=== PATIENT | female | born 1970 | race Caucasian/White ===

== ENCOUNTER 2019-01-01 18:35 | Emergency (ER) | payer OTHER, MEDICAID, SELFPAY ==
[2019-01-01 18:42] VITALS: BP 164/97; PULSE 111; RESP 15; TEMP 37.1; O2SAT 98; BMI 23.7
--- NOTE | 2019-01-01 18:52 | DI.RAD.S_ITS ---
PROCEDURE: XR ANKLE LT MIN 3V INDICATIONS: ankle swelling TECHNIQUE: 3 views of the ankle were acquired. COMPARISON: None. FINDINGS: Bones: No fractures or dislocations. Ankle mortise is normally aligned. No suspicious bony lesions. Soft tissues: There is lateral malleolar soft tissue swelling. No tibiotalar joint effusion. Achilles tendon appears normal. IMPRESSION: Lateral malleolar soft tissue swelling. No underlying bony abnormality. If pain persists, repeat study in 5-7 days is recommended to exclude occult fracture. Dictated by: Lisset Li M.D. on 01/01/2019 at 19:13 Approved by: Lisset Li M.D. on 01/01/2019 at 19:13
--- NOTE | 2019-01-01 19:13 | ED_ITS ---
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 She states that she has been walking on it a lot, but no contusion, twisting or any known injury. She has not had any pain. She states she has a history of some swelling in her feet and ankles intermittently, none recently. She states that she used to be on medication for blood pressure and could have been for this as well, but not sure (she stopped all meds about 18 months ago, cannot name them and does not know PCP name). She denies any pain in the calf or knee. She denies any history of blood clots. She denies any chest pain, dyspnea, or other new complaints on systems review such as fever or any wounds Related Data Allergies Allergy/AdvReac Type Severity Reaction Status Date / Time No Known Drug Allergies Allergy Verified 01/01/19 18:49 Review of Systems <Margaret Hoffmann PA-C - Last Filed: 01/01/19 21:07> Review of Systems ROS Unobtainable: All systems reviewed & are unremarkable except as noted in HPI and below Patient History <Margaret Hoffmann PA-C - Last Filed: 01/01/19 21:07> Medical History (Updated 01/01/19 @ 20:09 by Margaret Hoffmann PA-C) Edema of lower extremity (Chronic) H/O: HTN (hypertension) (Chronic) Surgical History (Updated 01/01/19 @ 19:31 by Margaret Hoffmann PA-C) History of knee surgery (Resolved) Social History Smoking Status: Current every day smoker Social History Smoking Status: Current every day smoker alcohol intake frequency: holidays/special occasions only Substance Use Type: does not use Exam <VIET Wheat Last Filed: 01/01/19 21:07> Narrative Exam Narrative: GENERAL APPEARANCE: Patient sitting comfortably, in no distress. NECK/THYROID: Neck supple LUNGS: Clear to auscultation bilaterally. HEART: Regular rate and rhythm without murmur, normal S1, S2, no S3 or S4. EXTREMITIES: No cyanosis, pedal pulses present. No calf tenderness NEUROLOGIC: Alert and oriented, normal speech and coordination. MUSCULOSKELETAL: Moderate localized left ankle effusion, mildly tender to touch throughout the ankle joint. No tenderness over the metatarsals or toes, no tenderness over the knee. Full range of motion of the foot and ankle nonweightbearing without tenderness, normal knee flexion Initial Vital Signs Initial Vital Signs: Vital Signs Temperature 98.8 F 01/01/19 18:42 Pulse Rate 111 H 01/01/19 18:42 Respiratory Rate 15 01/01/19 18:42 Blood Pressure 164/97 H 01/01/19 18:42 Pulse Oximetry 98 01/01/19 18:42 <DO Bella Navarro Last Filed: 01/01/19 23:27> Initial Vital Signs Initial Vital Signs: Vital Signs Temperature 98.8 F 01/01/19 18:42 Pulse Rate 111 H 01/01/19 18:42 Respiratory Rate 15 01/01/19 18:42 Blood Pressure 164/97 H 01/01/19 18:42 Pulse Oximetry 98 01/01/19 18:42 Course <VIET Wheat Last Filed: 01/01/19 21:07> Orders Ordered: ED Orders 01/01/19 18:52 XR ankle LT min 3V Stat Vital Signs Vital signs: Vital Signs - 8 hr 01/01/19 18:42 01/01/19 20:20 Temperature 98.8 F Pulse Rate 111 H 74 Respiratory Rate 15 15 Blood Pressure 164/97 H 128/89 Pulse Oximetry 98 98 <DO Bella Navarro Last Filed: 01/01/19 23:27> Orders Ordered: ED Orders 01/01/19 18:52 XR ankle LT min 3V Stat Vital Signs Vital signs: Vital Signs - 8 hr 01/01/19 18:42 01/01/19 20:20 Temperature 98.8 F Pulse Rate 111 H 74 Respiratory Rate 15 15 Blood Pressure 164/97 H 128/89 Pulse Oximetry 98 98 MDM - Extremity Injury (Lower) <Margaret Hoffmann PA-C - Last Filed: 01/01/19 21:07> Imaging Data ankle: Radiologist's impression: [address] [address] XRay Report Signed Patient: Shahana Espino FMR#: [id number] : 1970Acct:[id number] Age/Sex: 48 / FDate of Service: 01/01/19 Loc: ED Accession Number: [id number] Procedure: XR ankle LT min 3V Ordering Provider: Margaret Hoffmann P.A-C PROCEDURE: XR ANKLE LT MIN 3V INDICATIONS: ankle swelling TECHNIQUE: 3 views of the ankle were acquired. COMPARISON: None. FINDINGS: Bones: No fractures or dislocations. Ankle mortise is normally aligned. No suspicious bony lesions. Soft tissues: There is lateral malleolar soft tissue swelling. No tibiotalar joint effusion. Achilles tendon appears normal. IMPRESSION: Lateral malleolar soft tissue swelling. No underlying bony abnormality. If pain persists, repeat study in 5-7 days is recommended to exclude occult fracture. Dictated by: Lisset Li M.D. on 01/01/2019 at 19:13 Approved by: Lisset Li M.D. on 01/01/2019 at 19:13 Discharge Plan Departure Patient Disposition: Home Clinical Impression: Edema of left ankle Discharge Date/Time: 01/01/19 20:21 Instructions: DI for Edema Due to Venous Stasis Activity Restrictions/Additional Instructions: Today, the source of your ankle swelling is not clear. You do have some swelling on the x-ray over the outside part of your ankle bone area, but no clear injury or fracture. Since you are not having pain, this could also be similar swelling to what you have had in the past, i.e. related to varicose veins. Please elevate your legs above your heart as much as possible. Wear the Conor wrap or a compression sock for support and comfort. As we talked about, you should return if you have any acute changes or new symptoms such as fever, severe pain or difficulty breathing. Since you are may be starting to notice a little bit of swelling in your other ankle, it is possible that you might need to start a diuretic medicine again if you are on that before. As we discussed however, you should follow-up with your PCP and have x-ray repeated next week if you still have swelling limited to that ankle without pain. We have given you a copy of your film on disc for comparison purposes if needed. Referrals: [facility], Nina Forman [Other]
[2019-01-01 20:20] VITALS: BP 128/89; PULSE 74; RESP 15; O2SAT 98
== END 2019-01-01 20:21 | disposition home or self-care (01) ==
PROVIDERS: Emergency Provider Internal Medicine
DX: R60.0 Localized edema (principal)
CPT/HCPCS: 73610; 99282; 99283

== ENCOUNTER 2021-02-08 14:46 | Emergency (ER) | payer OTHER, MEDICAID, SELFPAY ==
[2021-02-08 15:06] VITALS: BP 162/90; PULSE 99; RESP 18; TEMP 37.5; O2SAT 100; BMI 24.4
--- NOTE | 2021-02-08 17:20 | DI.CT.S_ITS ---
PROCEDURE: CT SOFT TISSUE NECK W CON INDICATIONS: Left-sided facial and neck swelling TECHNIQUE: After the administration of intravenous contrast, 3.0 mm axial sections acquired from the sella to the aortic arch. Additional oblique axial 3.0 mm sections acquired through the pharynx. 3 mm thick coronal and sagittal reformats were generated. For radiation dose reduction, the following was used: automated exposure control. COMPARISON: None. FINDINGS: Image quality: Excellent. Lymph nodes: No enlarged lymph nodes seen throughout the neck. Vessels: Visualized vasculature appears patent. Neck spaces: The oropharynx, nasopharynx, and pharynx demonstrate no mucosal lesions. The vocal cords, false vocal cords, pyriform sinuses, epiglottis, vallecula, and tongue base all appear normal. Extramucosal spaces appear unremarkable. Glands: The parotid and submandibular glands appear normal. Thyroid gland unremarkable. Miscellaneous: Visualized brain and orbits appear normal. Lung apices show mild emphysematous changes subpleural blebs. Superficial soft tissues appear normal. Skull base shows air-fluid level right sphenoid sinus with osseous wall thickening reflecting chronic sinusitis. Bones: No suspicious bony lesions. Visualized sinuses and mastoids appear unremarkable. Multilevel degenerative disc disease and arthropathy lower cervical spine results in moderate central and foraminal stenosis at C6-7 IMPRESSION: 1. No acute CT findings in the neck. No subcutaneous or glandular edema. No abscess. 2. Multilevel degenerative disc disease and arthropathy results in moderate central stenosis at C6-7 Approved by: Balwinder Parsons M.D. on 02/08/2021 at 17:03
--- NOTE | 2021-02-08 17:25 | ED.GENADULT ---
HPI - General Adult <Chandrakant Pavon PA-C - Last Filed: 02/08/21 19:54> General Chief complaint: Dental/Oral Stated complaint: lt sided facial swelling Time Seen by Provider: 02/08/21 16:55 Source: patient Mode of arrival: Ambulatory Limitations: no limitations History of Present Illness HPI narrative: Patient is a 50-year-old female presenting to the emergency department today for an evaluation difficulty swallowing that began yesterday. Patient states that she began to experience facial lesions approximately 4 months ago that she sought treatment for at the walk-in clinic in [place]. She states that she completed a 14 day course of doxycycline approximately 1 week ago, but she notes that she began experiencing symptoms of fever and chills shortly after completing the antibiotic. Patient notes that she has also experienced a burning sensation in the left side of her neck with associated ?bad taste in the mouth?, blurry vision in the left eye, headache, and decreased hearing in the left ear. No abdominal pain, nausea, vomiting, diarrhea great thanks, chest pain, shortness of breath, dysuria, hematuria, or ear pain noted. No other concerns voiced at this time Related Data Previous Rx's Medication Instructions Recorded doxycycline monohydrate 100 mg 100 mg PO BID #28 cap 01/05/21 capsule Allergies Allergy/AdvReac Type Severity Reaction Status Date / Time No Known Drug Allergies Allergy Verified 01/05/21 11:35 Review of Systems <Chandrakant Pavon PA-C - Last Filed: 02/08/21 19:54> Constitutional Constitutional: Reports chills, Denies fatigue, Denies fever(s) (Reports feeling warm), Denies frequent falls, Reports headache(s), Denies lethargy and Denies weakness Eyes Eyes: Reports blurry vision (Left eye) ENT Ears, Nose, Mouth, and Throat: Reports abnormal hearing (Decreased hearing left ear), Denies change in voice, Denies dental pain, Reports dysphagia, Denies dizziness, Reports headache(s), Denies nasal congestion, Denies nasal discharge, Denies neck pain, Denies sore throat and Denies throat swelling Cardiovascular Cardiovascular: Denies chest pain, Denies irregular heart rhythm, Denies lightheadedness, Denies palpitations, Denies dyspnea, Denies dyspnea on exertion and Denies orthopnea Respiratory Respiratory: Denies cough, Denies dyspnea, Denies dyspnea on exertion and Denies wheezing Gastrointestinal Gastrointestinal: Denies abdominal pain, Denies change in bowel habits, Reports dysphagia, Denies diarrhea, Denies nausea and Denies vomiting Genitourinary Genitourinary: Denies hematuria, Denies flank pain, Denies urinary incontinence and Denies urinary urgency Musculoskeletal Musculoskeletal: Denies back pain, Denies muscle weakness, Denies neck pain, Denies numbness and Denies tingling Integumentary/Breasts Skin/Breast: Reports lesions (Facial) Neurologic Neurologic: Reports abnormal hearing (Decreased hearing left ear), Denies dizziness, Denies frequent falls, Reports headache(s), Denies numbness, Denies tingling and Denies weakness Endocrine Endocrine: Denies fatigue and Denies palpitations Allergic/Immunologic Allergic/Immunologic: Denies urticaria, Denies throat swelling and Denies wheezing Patient History <Chandrakant Pavon PA-C - Last Filed: 02/08/21 19:54> Medical History Edema of lower extremity H/O: HTN (hypertension) Surgical History History of knee surgery Social History Smoking Status: Current every day smoker Smoking Status: Current every day smoker alcohol intake frequency: holidays/special occasions only Substance Use Type: does not use Exam <Chandrakant Pavon PA-C - Last Filed: 02/08/21 19:54> Narrative Exam Narrative: GENERAL: 50 year old patient appears stated age. Well-developed patient, in no acute distress. HEAD: Atraumatic. Normocephalic. EYES: Pupils equal round and reactive. Extraocular motions intact. No scleral icterus. No injection or drainage. ENT: Nose without bleeding, purulent drainage. Throat without erythema, tonsillar hypertrophy or exudate. Airway patent. Uvula midline. Tympanic membranes clear bilaterally in free of erythema or bulging. NECK: Trachea midline. Non tender CARDIOVASCULAR: Regular rate and rhythm without murmurs, gallops, or rubs. RESPIRATORY: Clear to auscultation. Breath sounds equal bilaterally. No wheezes, rales, or rhonchi. GASTROINTESTINAL: Abdomen soft, non-tender, nondistended. EXTREMITIES: No edema or joint tenderness. BACK: Nontender without deformity or crepitance. No flank tenderness. NEURO: AOx3. SKIN: No rash or erythema of visible areas. Numerous scattered lesions throughout the face in various stages of healing. Initial Vital Signs Initial Vital Signs: Vital Signs Temperature 99.5 F 02/08/21 15:06 Pulse Rate 99 H 02/08/21 15:06 Respiratory Rate 18 02/08/21 15:06 Blood Pressure 162/90 H 02/08/21 15:06 Pulse Oximetry 100 02/08/21 15:06 <David Painter DO - Last Filed: 02/10/21 07:19> Initial Vital Signs Initial Vital Signs: Vital Signs Temperature 99.5 F 02/08/21 15:06 Pulse Rate 99 H 02/08/21 15:06 Respiratory Rate 18 02/08/21 15:06 Blood Pressure 162/90 H 02/08/21 15:06 Pulse Oximetry 100 02/08/21 15:06 Course <VIET Haque Last Filed: 02/08/21 19:54> Course Course Narrative: CT soft tissue neck with contrast, CBC, CMP ordered. Orders Ordered: ED Orders 02/08/21 17:20 CT soft tissue neck w con Stat 02/08/21 17:35 CBC Auto Diff [Complete Blood Count AUTO DIFF] Stat CMP [Comprehensive Metabolic Panel] Stat Vital Signs Vital signs: Vital Signs - 8 hr 02/08/21 15:06 02/08/21 18:54 Temperature 99.5 F Pulse Rate 99 H 66 Respiratory Rate 18 18 Blood Pressure 162/90 H 143/86 H Pulse Oximetry 100 100 <DO Bella Kessler Last Filed: 02/10/21 07:19> Orders Ordered: ED Orders 02/08/21 17:20 CT soft tissue neck w con Stat 02/08/21 17:35 CBC Auto Diff [Complete Blood Count AUTO DIFF] Stat CMP [Comprehensive Metabolic Panel] Stat Vital Signs Vital signs: Vital Signs - 8 hr 02/08/21 15:06 02/08/21 18:54 Temperature 99.5 F Pulse Rate 99 H 66 Respiratory Rate 18 18 Blood Pressure 162/90 H 143/86 H Pulse Oximetry 100 100 Medical Decision Making <VIET Haque Last Filed: 02/08/21 19:54> Lab Data Result diagrams: 02/08/21 17:35 02/08/21 17:35 Labs: Lab Results 02/08/21 02/08/21 Range/Units 17:35 17:35 WBC 6.8 (4.5-11.0) X10^3/uL RBC 4.70 (4.0-5.2) X10^6/uL Hgb 14.3 (12.0-16.0) g/dL Hct 42.3 (36-46) % MCV 89.9 (80-100) fL MCH 30.3 (26-34) PG MCHC 33.7 (30-36) % RDW 12.9 (11.6-14.8) % Plt Count 283 (150-400) X10^3/uL Neut % (Auto) 63.7 (50-75) % Lymph % (Auto) 29.0 (25-40) % Blount % (Auto) 5.5 (3-14) % Eos % (Auto) 1.1 L (2-4) % Baso % (Auto) 0.7 (0-2) % Neut # (Auto) 4300 (3838-1982) /uL Lymph # (Auto) 2000 (3268-6250) /uL Blount # (Auto) 400 (0-900) /uL Eos # (Auto) 100 (0-450) /uL Baso # (Auto) 0 (0-100) /uL Sodium 142 (137-145) mmol/L Potassium 4.2 (3.4-5.1) mmol/L Chloride 104 (98-107) mmol/L Carbon Dioxide 30 (22-32) mmol/L BUN 9 (7-17) mg/dL Creatinine 1.03 (0.52-1.04) mg/dL Estimated GFR 56.7 L (>60) mL/min BUN/Creatinine Ratio 8.7 (6-22) Glucose 108 H (70-100) mg/dL Calcium 9.6 (8.4-10.2) mg/dL Total Bilirubin 0.5 (0.2-1.3) mg/dL AST 37 H (14-36) IU/L ALT 33 (<35) IU/L Alkaline Phosphatase 72 (38-126) U/L Total Protein 7.9 (6.3-8.2) g/dL Albumin 4.8 (3.5-5.0) g/dL Globulin 3.1 (1.7-4.1) g/dL Albumin/Globulin Ratio 1.5 (1.0-2.8) Imaging Data CT - Soft Tissue Neck: Radiologist's Impression: PROCEDURE:? CT SOFT TISSUE NECK W CON ? INDICATIONS:? Left-sided facial and neck swelling ? TECHNIQUE:? After the administration of intravenous contrast, 3.0 mm axial sections acquired from the sella to the aortic arch.? Additional oblique axial 3.0 mm sections acquired through the pharynx.? 3 mm thick coronal and sagittal reformats were generated.? For radiation dose reduction, the following was used:? automated exposure control.? ? COMPARISON:? None. ? FINDINGS:? Image quality:? Excellent.? ? Lymph nodes:? No enlarged lymph nodes seen throughout the neck.? ? Vessels:? Visualized vasculature appears patent.? ? Neck spaces:? The oropharynx, nasopharynx, and pharynx demonstrate no mucosal lesions.? The vocal cords, false vocal cords, pyriform sinuses, epiglottis, vallecula, and tongue base all appear normal.? Extramucosal spaces appear unremarkable.? ? Glands:? The parotid and submandibular glands appear normal.? Thyroid gland unremarkable. ? ? Miscellaneous:? Visualized brain and orbits appear normal.? Lung apices show mild emphysematous changes subpleural blebs.? Superficial soft tissues appear normal.? Skull base shows air-fluid level right sphenoid sinus with osseous wall thickening reflecting chronic sinusitis. ? Bones:? No suspicious bony lesions.? Visualized sinuses and mastoids appear unremarkable. ?Multilevel degenerative disc disease and arthropathy lower cervical spine results in moderate central and foraminal stenosis at C6-7 ? ? IMPRESSION:? ? 1. No acute CT findings in the neck.? No subcutaneous or glandular edema.? No abscess.? ? 2. Multilevel degenerative disc disease and arthropathy results in moderate central stenosis at C6-7 ? ? Approved by: Balwinder Parsons M.D. on 02/08/2021 at 17:03? [facility] Narrative Medical decision making narrative: Patient is a 50-year-old female presenting to the emergency department today for an evaluation difficulty swallowing that began yesterday. To consider bacterial sinusitis versus rhinosinusitis versus viral pharyngitis. Overall history and physical examination are reassuring. CT soft tissue neck with contrast showed no acute findings no abscess. Lab work and imaging with patient and noted that results overall have been reassuring. At this time patient feels comfortable being discharged home. Strict return precautions discussed with patient prior to discharge. <David Painter DO - Last Filed: 02/10/21 07:19> Lab Data Labs: Lab Results 02/08/21 02/08/21 Range/Units 17:35 17:35 WBC 6.8 (4.5-11.0) X10^3/uL RBC 4.70 (4.0-5.2) X10^6/uL Hgb 14.3 (12.0-16.0) g/dL Hct 42.3 (36-46) % MCV 89.9 (80-100) fL MCH 30.3 (26-34) PG MCHC 33.7 (30-36) % RDW 12.9 (11.6-14.8) % Plt Count 283 (150-400) X10^3/uL Neut % (Auto) 63.7 (50-75) % Lymph % (Auto) 29.0 (25-40) % Blount % (Auto) 5.5 (3-14) % Eos % (Auto) 1.1 L (2-4) % Baso % (Auto) 0.7 (0-2) % Neut # (Auto) 4300 (8199-4518) /uL Lymph # (Auto) 2000 (1515-0660) /uL Blount # (Auto) 400 (0-900) /uL Eos # (Auto) 100 (0-450) /uL Baso # (Auto) 0 (0-100) /uL Sodium 142 (137-145) mmol/L Potassium 4.2 (3.4-5.1) mmol/L Chloride 104 (98-107) mmol/L Carbon Dioxide 30 (22-32) mmol/L BUN 9 (7-17) mg/dL Creatinine 1.03 (0.52-1.04) mg/dL Estimated GFR 56.7 L (>60) mL/min BUN/Creatinine Ratio 8.7 (6-22) Glucose 108 H (70-100) mg/dL Calcium 9.6 (8.4-10.2) mg/dL Total Bilirubin 0.5 (0.2-1.3) mg/dL AST 37 H (14-36) IU/L ALT 33 (<35) IU/L Alkaline Phosphatase 72 (38-126) U/L Total Protein 7.9 (6.3-8.2) g/dL Albumin 4.8 (3.5-5.0) g/dL Globulin 3.1 (1.7-4.1) g/dL Albumin/Globulin Ratio 1.5 (1.0-2.8) Discharge Plan Departure Patient Disposition: Home Clinical Impression: Acute rhinosinusitis Instructions: Sinusitis Activity Restrictions/Additional Instructions: *You have been diagnosed with [ ] *What to do: *Please continue to take your regular medications as directed. [ ] New medication prescriptions sent to your pharmacy: [ ] [ ] New medication written as a paper prescription [X] No new medications given *Please follow up with your primary care provider in the next 24-48 hours, call for an appointment. Let them know you were seen in the Emergency Department and that we ask that you be seen in follow up. We will electronically transmit a record of today's note if your PCP is in our system *If you do not have a primary care provider please contact the [facility] Resource line at [phone]. They will ask some questions about your medical history and help get you set up with a doctor in the community. *Return to Emergency Department if you should have any new, worsening or concerning symptoms, such as fever greater than 101 F, shaking chills, worsening pain, worsening swelling, worsening difficulty swallowing, persistent vomiting or other bothersome symptoms. Prescriptions: No Action doxycycline monohydrate 100 mg capsule 100 mg PO BID Qty: 28 0RF Rx Instructions: Take one capsule twice daily for 10-14 days <David Painter, DO - Last Filed: 02/10/21 07:19> Cosign ED Attending Cosignature Attestation: Dr Painter Co-Sign Statement: I was available for consultation during this patient's emergency department visit. This chart is signed by myself for administrative purposes only. I did not have direct contact with this patient during this visit. They were seen independently by the APC.
[2021-02-08 17:47] LABS: Add Manual Diff / Slide Review NO; Basophils Absolute Auto 0 /uL (0-100); Basophils Percent Auto 0.7 % (0-2); Eosinophils Absolute Auto 100 /uL (0-450); Eosinophils Percent Auto 1.1 % (2-4); Hematocrit 42.3 % (36-46); Hemoglobin 14.3 g/dL (12.0-16.0); Lymphocytes Absolute Auto 2000 /uL (1100-4500); Mean Corpuscular HGB Conc 33.7 % (30-36); Mean Corpuscular Hemoglobin 30.3 PG (26-34); Mean Corpuscular Volume 89.9 fL (80-100); Monocytes Absolute Auto 400 /uL (0-900); Monocytes Percent Auto 5.5 % (3-14); Neutrophils Absolute Auto 4300 /uL (1500-7000); Neutrophils Percent Auto 63.7 % (50-75); Platelet Count 283 X10^3/uL (150-400); Red Cell Distribution Width 12.9 % (11.6-14.8); White Blood Cell Count 6.8 X10^3/uL (4.5-11.0)
[2021-02-08 18:18] LABS: Alanine Aminotransferase 33 IU/L (<35); Albumin 4.8 g/dL (3.5-5.0); Albumin Globulin Ratio 1.5 (1.0-2.8); Alkaline Phosphatase 72 U/L (38-126); Aspartate Aminotransferase 37 IU/L (14-36); BUN Creatinine Ratio 8.7 (6-22); Bilirubin Total 0.5 mg/dL (0.2-1.3); Blood Urea Nitrogen 9 mg/dL (7-17); Calcium 9.6 mg/dL (8.4-10.2); Carbon Dioxide 30 mmol/L (22-32); Chloride 104 mmol/L (98-107); Estimated Glomerular Filt Rate 56.7 mL/min (>60); Globulin 3.1 g/dL (1.7-4.1); Glucose 108 mg/dL (70-100); HEMOLYSIS < 15 (0-50); Potassium 4.2 mmol/L (3.4-5.1); Sodium 142 mmol/L (137-145); Total Protein 7.9 g/dL (6.3-8.2)
[2021-02-08 18:54] VITALS: BP 143/86; PULSE 66; RESP 18; O2SAT 100
== END 2021-02-08 18:54 | disposition home or self-care (01) ==
PROVIDERS: Emergency Provider Physician Assistant
DX: J01.90 Acute sinusitis, unspecified (principal); R13.10 Dysphagia, unspecified
CPT/HCPCS: 36415; 70491; 80053; 85025; 99284; Q9967

== ENCOUNTER 2022-01-03 20:00 | Emergency (ER) | payer OTHER, MEDICAID, SELFPAY ==
[2022-01-03 20:10] VITALS: BP 187/94; PULSE 96; RESP 16; TEMP 36.9; O2SAT 100; BMI 25.1
--- NOTE | 2022-01-03 22:46 | PC.NURSE ---
assessment: Patient states she has a history of skin infections and everytime she has a sinus infection, it has to be diagnosed by a CT scan because she doesnt know she has it except for a headache in the back of her head. these have been going on for 2-3 years. patient then goes on to say she got this weird thing on her hand and her hand got all swollen and red and her hand had a fever, her uncle thought she might have a spider bite and she needed to go to the doctor. she shows me a small [id number] abrasion on hand, appears to be in the healing process. pt states this has been there for 5 days and it is super painful sometimes, like when she is driving, and shoots up her arm to her elbow with sharp nerve pain and makes her arm go all tingling. patient then states it hit her face and she has had these weird lesions on her face and her lips have been swollen and there is something in her left nostril. but these lesions are hollow and there is nothing underneath them except new skin. patient describes them like a tunnel. she states she has had something like this years ago and had bactrim for it and it healed up but the other meds made it come back. patient states she got meds from [facility] 4 months ago. pt does have lesions on face and cracks at corner of mouth.
--- NOTE | 2022-01-03 23:19 | ED.GENADULT ---
HPI - General Adult General Chief complaint: Upper Respiratory Symptoms Stated complaint: states sinus infection Time Seen by Provider: 01/03/22 23:09 Source: patient Mode of arrival: Ambulatory History of Present Illness HPI narrative: Patient complains of persistent lesions to her face, both sides. Seen here in January 2021 for the same. Was placed on doxycycline. Since then she is seen Dermatology for times as well as primary care. She states the only time the lesions resolved was with Bactrim DS. 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 Denies any other complaints. She states she does not pick at her skin. There are no other lesions other on her face. Has had oozing off and on. Currently dry skin. No fever chills. Related Data Previous Rx's Medication Instructions Recorded doxycycline monohydrate 100 mg 100 mg PO BID #28 caps 01/05/21 capsule sulfamethoxazole 800 1 tab PO BID #20 tabs 01/03/22 mg-trimethoprim 160 mg tablet Allergies Allergy/AdvReac Type Severity Reaction Status Date / Time No Known Drug Allergies Allergy Verified 01/05/21 11:35 Review of Systems Review of Systems Narrative: GENERAL: Denies chills, fatigue, malaise, fever, sweats. HEENT: Denies sinus pain, ear pain, sore throat RESPIRATORY: Denies dyspnea, cough CARDIOVASCULAR: Denies chest pain, palpitations GASTROINTESTINAL: Denies nausea, vomiting, abdominal pain : Denies dysuria, frequency, hematuria MUSCULOSKELETAL: denies muscle or bony pain SKIN: Denies rash, positive for skin lesions NEUROLOGIC: Denies weakness, numbness ROS Unobtainable: All systems reviewed & are unremarkable except as noted in HPI and below Patient History Medical History Edema of lower extremity H/O: HTN (hypertension) Surgical History History of knee surgery Social History Smoking Status: Current every day smoker Smoking Status: Current every day smoker tobacco type: cigarettes alcohol intake frequency: holidays/special occasions only Substance Use Type: does not use Exam Narrative Exam Narrative: GENERAL: in no distress, not toxic not dyspneic HEAD: Normocephalic. EYES: Pupils equal round No scleral icterus. ENT: Mucous membranes moist. NECK: Trachea midline. CARDIOVASCULAR: Regular rate and rhythm without murmurs RESPIRATORY: Clear to auscultation. Breath sounds equal bilaterally. No wheezes, rales, or rhonchi. GASTROINTESTINAL: Abdomen soft, non-tender EXTREMITIES: No gross deformities. Small left hand skin ulceration the patient states she picked out and since then has pain off and on that radiates proximally. NEURO: AOx4. SKIN: Warm and dry, there are spotty diffuse bilateral face circular lesions ranging from 2 mm up to 5 mm in diameter. They are dry. Slightly ulcerated. Nontender to touch. No oozing. No red streaking. No palpable abscesses. No vesicles. PSYCH: Not anxious, is cooperative Initial Vital Signs Initial Vital Signs: Vital Signs Temperature 98.4 F 01/03/22 20:10 Pulse Rate 96 H 01/03/22 20:10 Respiratory Rate 16 01/03/22 20:10 Blood Pressure 187/94 H 01/03/22 20:10 Pulse Oximetry 100 01/03/22 20:10 Oxygen Delivery Method 01/03/22 20:10 Course Course Course Narrative: No new issues during course of stay Orders Ordered: Discontinued Medications Trimethoprim/Sulfamethoxazole (Trimeth/Sulfa 160/800 (Ds) Tablet) 1 tab PO NOW ONE Stop: 01/03/22 23:19 Last Admin: 01/03/22 23:46 Dose: 1 tab Documented By: NR Reevaluation(s) Reevaluation #1: Patient agrees with treatment plan with trying Bactrim again as it did resolve her facial skin lesions in the past. No blood work or imaging indicated at this time. Treating clinically for cellulitis/staph infection Time: 23:26 Vital Signs Vital signs: Vital Signs - 8 hr 01/03/22 20:10 01/03/22 23:52 Temperature 98.4 F Pulse Rate 96 H 84 Respiratory Rate 16 24 Blood Pressure 187/94 H 147/79 H Pulse Oximetry 100 97 Oxygen Delivery Method Room Air Room Air Medical Decision Making Differential Diagnosis Differential Diagnosis: Cellulitis/MRSA/impetigo/shingles MDM Narrative Medical decision making narrative: Appropriate for discharge home treatment with Bactrim. This has resolved her facial lesions in the past. She is willing to try this again. She does have established dermatology as well as primary care. Return precautions reviewed with her. Not toxic at discharge. No imaging or blood work indicated. Discharge Plan Departure Patient Disposition: Home Clinical Impression: Cellulitis diffuse, face Instructions: DI for Cellulitis -- Adult Activity Restrictions/Additional Instructions: Please continue Bactrim antibiotic tomorrow. Prescription for 10 days has been provided and sent to your [facility] pharmacy. 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 Return if worse if any questions or concerns Prescriptions: New sulfamethoxazole-trimethoprim 800-160 mg tablet 1 tab PO BID Qty: 20 0RF No Action doxycycline monohydrate 100 mg capsule 100 mg PO BID Qty: 28 0RF Rx Instructions: Take one capsule twice daily for 10-14 days Visit Report Forms: Patient Portal/API
[2022-01-03] MEDS: TRIMETH/SULFA 160/800 (DS) TABLET 1 TAB PO (23:46)
[2022-01-03 23:52] VITALS: BP 147/79; PULSE 84; RESP 24; O2SAT 97
== END 2022-01-03 23:56 | disposition home or self-care (01) ==
PROVIDERS: Emergency Provider Emergency Medicine
DX: L03.211 Cellulitis of face (principal)
CPT/HCPCS: 99283

== ENCOUNTER 2024-01-03 11:58 | Emergency (ER) | payer OTHER, MEDICAID, SELFPAY ==
[2024-01-03] VITALS (11 sets, daily range): BP systolic 125–155; BP diastolic 68–87; PULSE 71–90; RESP 17; TEMP 36.3; O2SAT 95–99; BMI 29.2
[2024-01-03 12:47] LABS: Add Manual Diff / Slide Review NO; Basophils Absolute Auto 0 /uL (0-100); Basophils Percent Auto 0.4 % (0-2); Eosinophils Absolute Auto 100 /uL (0-450); Eosinophils Percent Auto 0.9 % (2-4); Hemoglobin 13.5 g/dL (12.0-16.0); Lymphocytes Absolute Auto 2100 /uL (1100-4500); Lymphocytes Percent Auto 18.1 % (25-40); Mean Corpuscular HGB Conc 33.7 % (30-36); Mean Corpuscular Hemoglobin 30.1 PG (26-34); Mean Corpuscular Volume 89.4 fL (80-100); Monocytes Absolute Auto 1000 /uL (0-900); Monocytes Percent Auto 8.6 % (3-14); Neutrophils Absolute Auto 8200 /uL (1500-7000); Platelet Count 465 X10^3/uL (150-400); Red Blood Cell Count 4.48 X10^6/uL (4.0-5.2); Red Cell Distribution Width 13.4 % (11.6-14.8); White Blood Cell Count 11.5 X10^3/uL (4.5-11.0)
[2024-01-03 13:07] LABS: Alanine Aminotransferase 105 IU/L (<35); Albumin 4.3 g/dL (3.5-5.0); Alkaline Phosphatase 199 U/L (38-126); Aspartate Aminotransferase 61 IU/L (14-36); BUN Creatinine Ratio 13.9 (6-22); Bilirubin Total 0.6 mg/dL (0.2-1.3); Blood Urea Nitrogen 15 mg/dL (7-17); Calcium 9.2 mg/dL (8.4-10.2); Carbon Dioxide 29 mmol/L (22-32); Chloride 100 mmol/L (98-107); Estimated Glomerular Filt Rate > 60 mL/min (>60); Globulin 4.1 g/dL (1.7-4.1); Glucose 110 mg/dL (70-100); HEMOLYSIS 40 (0-50); Lipase 76 U/L (23-300); Potassium 4.3 mmol/L (3.4-5.1); Sodium 138 mmol/L (137-145); Total Protein 8.4 g/dL (6.3-8.2)
[2024-01-03 13:08] LABS: Bacteria Urine Moderate (10-30); Culture Indicated Urine Specimen Cultured; RBC Urine 0-1/HPF (0-5/HPF); Squamous Epithelial Cell Urine 1-5 /HPF (0-5/HPF); Urine Volume 10mL (spun); WBC Urine 10-30/HPF (0-5/HPF)
--- NOTE | 2024-01-03 16:36 | EKG_ITS ---
[address] [address] Test Date: 2024-01-03 Pat Name: Shahana Espino Department: [facility] Room: Gender: Female Program Paraprofessional: VANESSA : 1970 Requested By: Order Number: [id number] Reading MD: Damián Guzman Measurements Intervals Abbott Rate: 75 P: 51 IA: 174 QRS: 51 QRSD: 86 T: 58 QT: 392 QTc: 437 Interpretive Statements Sinus rhythm with premature atrial complexes Electronically Signed On 01-06-2024 15:54:16 PDT by Damián Guzman
--- NOTE | 2024-01-03 17:11 | DI.US.S_ITS ---
PROCEDURE: US ABDOMEN LIMITED INDICATIONS: ruq TECHNIQUE: Real-time scanning was performed of the abdominal and retroperitoneal organs, with image documentation. COMPARISON: None. FINDINGS: Liver: Liver is enlarged and measures 19.8 cm in length. Diffusely increased liver parenchymal echotexture is seen. No definite discrete hepatic lesion is noted. Normal hepatopetal flow is seen in patent main portal vein. Gallbladder: No gallstones. No gallbladder wall thickening or pericholecystic fluid. No sonographic Cabrera sign. Biliary ducts: Intrahepatic bile ducts are non-dilated. Extrahepatic bile duct caliber measures 6 mm. Normal is 6-7 mm or less in diameter, or 10 mm or less post-cholecystectomy. Pancreas: Visualized portions of the pancreas are sonographically normal. Miscellaneous: No free abdominal fluid. IMPRESSION: 1. Hepatic steatosis and hepatomegaly. No discrete hepatic lesion. 2. Normal appearing gallbladder. No biliary ductal dilatation. 3. Normal appearing right kidney and visualized portion of pancreas. Dictated by: Wilfredo Gan M.D. on 01/03/2024 at 18:08 Approved by: Wilfredo Gan M.D. on 01/03/2024 at 18:09
--- NOTE | 2024-01-03 17:22 | ED_ITS ---
HPI - Abdominal Pain General Chief Complaint: Abdominal Pain Stated Complaint: abd pain, getting worse Time Seen by Provider: 01/03/24 17:11 Source: patient Mode of arrival: Family Vehicle History of Present Illness HPI narrative: Patient is a 53-year-old female without significant past medical history presenting today with ongoing abdominal pain. She reports that gotten worse over the last week or so. She also feels like she is having some suprapubic pain she feels like something is wrong with her uterus although she does not have any menstrual periods anymore. She also has ongoing back pain she has no tingling down the leg. No nausea or vomiting. Denies any significant chest pain no fever or chills. Related Data Previous Rx's Medication Instructions Recorded doxycycline monohydrate 100 mg 100 mg PO BID #28 caps 01/05/21 capsule sulfamethoxazole 800 1 tab PO BID #20 tabs 01/03/22 mg-trimethoprim 160 mg tablet cephalexin 500 mg capsule 500 mg PO BID 7 days #14 caps 01/03/24 Allergies Allergy/AdvReac Type Severity Reaction Status Date / Time No Known Drug Allergies Allergy Verified 01/03/24 12:20 Patient History Medical History Edema of lower extremity H/O: HTN (hypertension) Surgical History History of knee surgery Social History Smoking Status: Current every day smoker Smoking Status: Current every day smoker tobacco type: cigarettes alcohol intake frequency: other Substance Use Type: does not use Exam Initial Vital Signs Initial Vital Signs: Vital Signs Temperature 97.4 F L 01/03/24 12:17 Pulse Rate 90 01/03/24 12:17 Respiratory Rate 17 01/03/24 12:17 Blood Pressure 155/87 H 01/03/24 12:17 Pulse Oximetry 98 01/03/24 12:17 Oxygen Delivery Method Room Air 01/03/24 12:17 GENERAL: Alert 53-year-old female and in no acute distress. HEENT: Head atraumatic,EOMI, pupils reactive, face symmetric, moist mucous membranes CARDIOVASCULAR: Regular rate and rhythm without murmurs, rubs or gallops. RESPIRATORY: Breath sounds equal bilaterally, no wheezes rales or rhonchi. ABDOMEN: Soft, negative Cabrera sign minimal epigastric pain some mild right lower quadrant pain without guarding or rebound no peritoneal sign minimal suprapubic pain : No significant CVA tenderness some mild lower lumbar pain EXTREMITIES: Normal range of motion, no clubbing or edema. Neurovascularly intact NEUROLOGICAL: Alert and oriented x4.Normal gait and speech. SKIN: Warm, dry, no laceration, no petechiae, no rashes or lesions. Course Orders Ordered: Discontinued Medications Cefazolin Sodium (Cephalexin 250 Mg Cap Prepack) 1 bottle MISC DIRECTED ONE Stop: 01/03/24 19:33 Last Admin: 01/03/24 20:08 Dose: 250 mg Documented By: LEISA Ketorolac Tromethamine (Ketorolac 30 Mg/Ml Vial) 15 mg IV NOW ONE Stop: 01/03/24 18:22 Last Admin: 01/03/24 18:51 Dose: 15 mg Documented By: SABRA Ondansetron HCl (Ondansetron 4 Mg/2 Ml Inj) 4 mg IV NOW PRN PRN Reason: Nausea And Vomiting Ondansetron HCl (Ondansetron 4 Mg Odt) 4 mg PO NOW PRN PRN Reason: Nausea And Vomiting Vital Signs Vital signs: Vital Signs - 8 hr 01/03/24 12:17 01/03/24 16:38 01/03/24 16:38 Temperature 97.4 F L Pulse Rate 90 76 Respiratory Rate 17 Blood Pressure 155/87 H 126/82 Pulse Oximetry 98 95 Oxygen Delivery Method Room Air Room Air 01/03/24 17:00 01/03/24 17:00 01/03/24 17:30 Temperature Pulse Rate 72 74 Respiratory Rate Blood Pressure 126/80 Pulse Oximetry 97 97 Oxygen Delivery Method Room Air 01/03/24 17:30 01/03/24 18:00 01/03/24 18:00 Temperature Pulse Rate 77 Respiratory Rate Blood Pressure 127/72 134/68 Pulse Oximetry 99 Oxygen Delivery Method 01/03/24 18:30 01/03/24 18:30 01/03/24 19:08 Temperature Pulse Rate 72 75 Respiratory Rate Blood Pressure 125/85 Pulse Oximetry 98 Oxygen Delivery Method 01/03/24 19:09 01/03/24 19:09 01/03/24 19:13 Temperature Pulse Rate 71 72 Respiratory Rate Blood Pressure 140/84 Pulse Oximetry 98 97 Oxygen Delivery Method 01/03/24 19:13 Temperature Pulse Rate Respiratory Rate Blood Pressure 128/72 Pulse Oximetry Oxygen Delivery Method MDM - Abdominal Pain Lab Data 01/03/24 12:36 01/03/24 12:36 Labs: Lab Results 01/03/24 01/03/24 Range/Units 12:36 12:40 WBC 11.5 H (4.5-11.0) X10^3/uL RBC 4.48 (4.0-5.2) X10^6/uL Hgb 13.5 (12.0-16.0) g/dL Hct 40.0 (36-46) % MCV 89.4 (80-100) fL MCH 30.1 (26-34) PG MCHC 33.7 (30-36) % RDW 13.4 (11.6-14.8) % Plt Count 465 H (150-400) X10^3/uL Neut % (Auto) 72.0 (50-75) % Lymph % (Auto) 18.1 L (25-40) % [place] % (Auto) 8.6 (3-14) % Eos % (Auto) 0.9 L (2-4) % Baso % (Auto) 0.4 (0-2) % Neut # (Auto) 8200 H (5546-2817) /uL Lymph # (Auto) 2100 (3229-6463) /uL [place] # (Auto) 1000 H (0-900) /uL Eos # (Auto) 100 (0-450) /uL Baso # (Auto) 0 (0-100) /uL Sodium 138 (137-145) mmol/L Potassium 4.3 (3.4-5.1) mmol/L Chloride 100 (98-107) mmol/L Carbon Dioxide 29 (22-32) mmol/L BUN 15 (7-17) mg/dL Creatinine 1.08 H (0.52-1.04) mg/dL Estimated GFR > 60 (>60) mL/min BUN/Creatinine Ratio 13.9 (6-22) Glucose 110 H (70-100) mg/dL Calcium 9.2 (8.4-10.2) mg/dL Total Bilirubin 0.6 (0.2-1.3) mg/dL AST 61 H (14-36) IU/L ALT 105 H (<35) IU/L Alkaline Phosphatase 199 H (38-126) U/L Total Protein 8.4 H (6.3-8.2) g/dL Albumin 4.3 (3.5-5.0) g/dL Globulin 4.1 (1.7-4.1) g/dL Albumin/Globulin Ratio 1.0 (1.0-2.8) Lipase 76 (23-300) U/L Urine RBC 0-1/hpf (0-5/HPF) Urine WBC 10-30/hpf H (0-5/HPF) Ur Squamous Epith Cells 1-5 /hpf (0-5/HPF) Urine Bacteria Moderate (10-30) H (None) Ur Culture Indicated? Specimen cultured Vol Urine Centrifuged 10ml (spun) Point of care testing: Urine Dip Bedside Urine Glucose Negative Bedside Urine Bilirubin - Negative Bedside Urine Ketone - Negative Urine Specific [place] 1.025 Bedside Urine Occult Blood + Bedside Urine pH 6.0 Bedside Urine Protein + 30 Bedside Urine Urobilinogen - Negative Bedside Urine Nitrite - Negative Bedside Urine Leukocytes + 70 Esterase Imaging Data US - abdomen: Radiologist's Impression: PROCEDURE: US ABDOMEN LIMITED INDICATIONS: ruq TECHNIQUE: Real-time scanning was performed of the abdominal and retroperitoneal organs, with image documentation. COMPARISON: None. FINDINGS: Liver: Liver is enlarged and measures 19.8 cm in length. Diffusely increased liver parenchymal echotexture is seen. No definite discrete hepatic lesion is noted. Normal hepatopetal flow is seen in patent main portal vein. Gallbladder: No gallstones. No gallbladder wall thickening or pericholecystic fluid. No sonographic Cabrera sign. Biliary ducts: Intrahepatic bile ducts are non-dilated. Extrahepatic bile duct caliber measures 6 mm. Normal is 6-7 mm or less in diameter, or 10 mm or less post-cholecystectomy. Pancreas: Visualized portions of the pancreas are sonographically normal. Miscellaneous: No free abdominal fluid. IMPRESSION: 1. Hepatic steatosis and hepatomegaly. No discrete hepatic lesion. 2. Normal appearing gallbladder. No biliary ductal dilatation. 3. Normal appearing right kidney and visualized portion of pancreas. Dictated by: Wilfredo Gan M.D. on 01/03/2024 at 18:08 CT scan - abdomen/pelvis: Radiologist's Impression: PROCEDURE: CT ABDOMEN PELVIS W CON INDICATIONS: RLQ pain TECHNIQUE: After the administration of intravenous contrast, axial sections acquired from the lung bases to the pubic symphysis. Coronal and sagittal reformats were performed. For radiation dose reduction, the following was used: automated exposure control, adjustment of mA and/or kV according to patient size. COMPARISON: None. FINDINGS: Image quality: Diagnostic. Lower Chest: No significant findings. ABDOMEN: Liver: No solid mass. Gallbladder: No radiopaque gallstones or wall thickening. Biliary ducts: No biliary dilation. Pancreas: No ductal dilation. Spleen: Size is within normal limits. Adrenal Glands: No adrenal nodules. Kidneys and Ureters: There is left perinephric fat stranding and very mild prominence of left renal collecting system. Very mild prominence of left ureter is also seen without calcified renal stone or ureteral stone. No right-sided hydronephrosis. No solid mass. No complex renal cystic lesion which requires follow up. Stomach and Bowel: There is no bowel obstruction. Normal appendix is seen in right lower quadrant. No abscess collection. Peritoneum: No abnormal intraperitoneal fluid. No free air. Ventral Wall: No significant ventral hernia. Abdominal Nodes: No retroperitoneal or mesenteric adenopathy by size criteria. Vessels: Aorta and inferior vena cava are normal in size. PELVIS: Pelvic Organs: Within normal limits. Bladder: Mild diffuse bladder wall thickening is seen, no discrete bladder wall mass . Possible tiny stone is seen in dependent portion of bladder lumen best seen on series 2, image 137. Pelvic Nodes: No enlarged lymph nodes. Miscellaneous: No inguinal hernias are seen. Bones: No aggressive osseous abnormality. IMPRESSION: 1. Normal appendix. No bowel obstruction or abnormal bowel wall thickening. No abscess collection. No free fluid or free air. 2. Left perinephric fat stranding with very mild left-sided hydronephrosis and hydroureter extending to the level of UVJ without calcified obstructing stone. Finding may represent a passed stone versus left-sided infectious or inflammatory pyelonephritis suggest clinical correlation. Mild diffuse bladder wall thickening, low-grade cystitis cannot be excluded. No right-sided hydronephrosis or hydroureter. No right perinephric fat stranding. Dictated by: Wilfredo Gan M.D. on 01/03/2024 at 19:20 ECG Data Attestation: I personally reviewed and interpreted this ECG as follows: Prior ECG tracings: available for review Interpretation: Normal sinus rhythm rate 75 CA interval 174 QRS 86 QTC 437 mild artifact no significant ST changes or ischemia MDM Narrative Medical decision making narrative: Patient 53-year-old female presenting today with abdominal pain has progressively gotten worse. She is also having some back pain maybe some right lower quadrant pain is worse than the left. No significant nausea or vomiting. Blood work has been reviewed: She is mild leukocytosis of 11.5, creatinine 1.0, bilirubin 0.6 AST 61 ALT 105 alk-phos 199, lipase 76 Urine has bacteria and leukocytes Ultrasound shows hepatosteatosis with normal gallbladder CT shows a normal appendix with left perinephric fat stranding mild left hydronephrosis extending to the level of the UVJ with out a calcified obstructing stone which may represent a recent passed stone versus left sided infection EKG reviewed without ischemia She was given Toradol Zofran and prepack Keflex Patient has vague abdominal symptoms back pain. It does appear like maybe she passed a left-sided kidney stone she does have some leukocytes and signs and symptoms of UTI. We will start her on antibiotics and treat her for pyelonephritis. She does not have fever no evidence of severe sepsis. She is overall feeling better from the Toradol. Discharge Plan Departure Patient Disposition: Home Clinical Impression: Pyelonephritis Instructions: Kidney Infection Activity Restrictions/Additional Instructions: *You have been diagnosed with kidney infection, fatty liver *What to do: It is possibly recently passed a kidney stone on the left side but it does appear that you have an infection. You also have elevated liver enzymes *Continue to take medications as directed Keflex 500 mg twice a day for 7 days--> [facility] *Follow up with your primary care provider in 2-3 days or call [phone] *Return to ER if you should have increasing pain nausea vomiting fever confusion or any new, worsening or concerning symptoms Prescriptions: New cephalexin 500 mg capsule 500 mg PO BID 7 Days Qty: 14 0RF No Action doxycycline monohydrate 100 mg capsule 100 mg PO BID Qty: 28 0RF Rx Instructions: Take one capsule twice daily for 10-14 days sulfamethoxazole-trimethoprim 800-160 mg tablet 1 tab PO BID Qty: 20 0RF Stand Alone Forms: Patient Portal/API
--- NOTE | 2024-01-03 18:26 | DI.CT.S_ITS ---
PROCEDURE: CT ABDOMEN PELVIS W CON INDICATIONS: RLQ pain TECHNIQUE: After the administration of intravenous contrast, axial sections acquired from the lung bases to the pubic symphysis. Coronal and sagittal reformats were performed. For radiation dose reduction, the following was used: automated exposure control, adjustment of mA and/or kV according to patient size. COMPARISON: None. FINDINGS: Image quality: Diagnostic. Lower Chest: No significant findings. ABDOMEN: Liver: No solid mass. Gallbladder: No radiopaque gallstones or wall thickening. Biliary ducts: No biliary dilation. Pancreas: No ductal dilation. Spleen: Size is within normal limits. Adrenal Glands: No adrenal nodules. Kidneys and Ureters: There is left perinephric fat stranding and very mild prominence of left renal collecting system. Very mild prominence of left ureter is also seen without calcified renal stone or ureteral stone. No right-sided hydronephrosis. No solid mass. No complex renal cystic lesion which requires follow up. Stomach and Bowel: There is no bowel obstruction. Normal appendix is seen in right lower quadrant. No abscess collection. Peritoneum: No abnormal intraperitoneal fluid. No free air. Ventral Wall: No significant ventral hernia. Abdominal Nodes: No retroperitoneal or mesenteric adenopathy by size criteria. Vessels: Aorta and inferior vena cava are normal in size. PELVIS: Pelvic Organs: Within normal limits. Bladder: Mild diffuse bladder wall thickening is seen, no discrete bladder wall mass . Possible tiny stone is seen in dependent portion of bladder lumen best seen on series 2, image 137. Pelvic Nodes: No enlarged lymph nodes. Miscellaneous: No inguinal hernias are seen. Bones: No aggressive osseous abnormality. IMPRESSION: 1. Normal appendix. No bowel obstruction or abnormal bowel wall thickening. No abscess collection. No free fluid or free air. 2. Left perinephric fat stranding with very mild left-sided hydronephrosis and hydroureter extending to the level of UVJ without calcified obstructing stone. Finding may represent a passed stone versus left-sided infectious or inflammatory pyelonephritis suggest clinical correlation. Mild diffuse bladder wall thickening, low-grade cystitis cannot be excluded. No right-sided hydronephrosis or hydroureter. No right perinephric fat stranding. Dictated by: Wilfredo Gan M.D. on 01/03/2024 at 19:20 Approved by: Wilfredo Gan M.D. on 01/03/2024 at 19:24
[2024-01-03] MEDS: KETOROLAC 30 MG/ML VIAL 15 MG IV (18:51)
[2024-01-03] MEDS: cephALEXin 250 MG CAP PREPACK 1 BOTTLE MISC (20:08)
== END 2024-01-03 20:11 | disposition home or self-care (01) ==
PROVIDERS: Emergency Provider Emergency Medicine
DX: N12 Tubulo-interstitial nephritis, not specified as acute or chronic (principal)
CPT/HCPCS: 36415; 74177; 76705; 80053; 81003; 81015; 83690; 85025; 87077; 87086; 87186; 93005; 96374; 99284; J1885; Q9967